=== PATIENT | female | born 1960 ===

== ENCOUNTER → 2019-08-03 | Outpatient (REF) | payer OTHER ==
[2019-08-03 11:52] LABS: INFLUENZA A AMPLIFICATION NEGATIVE (NEGATIVE); INFLUENZA B AMPLIFICATION NEGATIVE (NEGATIVE)
== END ==
LOC: M LAB REF 10:58
PROVIDERS: ATTEND Physician Assistant Medical
DX: J11.1 Influenza due to unidentified influenza virus with other respiratory manifestations (principal)